=== PATIENT | female | born 1950 | race Caucasian/White ===

== ENCOUNTER 2016-06-07 06:04 | Day surgery (SDC) | payer MEDICARE ==
[~2016-06-07 06:04] MED LIST: ATV1 PO; CAT1 PO; CYANO1000T PO; EXFORGE HC4 PO; HYZAAR 100/25 T1 TAB PO; LEVOTHYROXIN100 MCG PO; OS500+D PO; ULTRAM50 PO; VITC500 PO
== END 2016-06-07 10:01 | disposition home or self-care (01) ==
LOC: SDC 06:04
PROVIDERS: Orthopaedic Surgery
PROC: 3E0R3BZ Introduction of Anesthetic Agent into Spinal Canal, Percutaneous Approach (ICD-10-PCS; 2016-06-07)
PROC: 3E0R33Z Introduction of Anti-inflammatory into Spinal Canal, Percutaneous Approach (ICD-10-PCS; principal; 2016-06-07 08:15)
DX: M54.16 Radiculopathy, lumbar region (principal); I10 Essential (primary) hypertension; M19.90 Unspecified osteoarthritis, unspecified site; E03.9 Hypothyroidism, unspecified; F41.9 Anxiety disorder, unspecified; Z90.49 Acquired absence of other specified parts of digestive tract; Z98.890 Other specified postprocedural states
CPT/HCPCS: J1040; J2250; J3010; Q9967

== ENCOUNTER 2016-06-21 05:25 | Day surgery (SDC) | payer MEDICARE | END 2016-06-21 08:56 | disposition home or self-care (01) | LOC: SDC 05:25 | PROVIDERS: Orthopaedic Surgery | PROC: 3E0S33Z Introduction of Anti-inflammatory into Epidural Space, Percutaneous Approach (ICD-10-PCS; 2016-06-21) | PROC: B01BZZZ Fluoroscopy of Spinal Cord (ICD-10-PCS; 2016-06-21) | PROC: 3E0S3BZ Introduction of Anesthetic Agent into Epidural Space, Percutaneous Approach (ICD-10-PCS; principal; 2016-06-21 07:30) | DX: M54.16 Radiculopathy, lumbar region (principal); M19.90 Unspecified osteoarthritis, unspecified site; I10 Essential (primary) hypertension; E03.9 Hypothyroidism, unspecified; F41.9 Anxiety disorder, unspecified; Z79.899 Other long term (current) drug therapy; Z90.49 Acquired absence of other specified parts of digestive tract; Z98.890 Other specified postprocedural states | CPT/HCPCS: J1040; J2250; J3010; Q9967 ==